=== PATIENT | female | born 2000 | race Hispanic/Latino ===

== ENCOUNTER 2018-02-20 12:59 | Emergency (ER) | payer OTHER ==
[2018-02-20 14:49] LABS: Urine Blood 3+ (NEG); Urine Glucose NEGATIVE (NEG); Urine Protein 1+ (NEG); Urine Specific Gravity 1.015 (1.005-1.030)
[2018-02-20 15:23] LABS: Urine Appearance CLEAR; Urine Bilirubin NEGATIVE (NEG); Urine Blood 3+ (NEG); Urine Color YELLOW; Urine Glucose NEGATIVE (NEG); Urine Protein TRACE (NEG); Urine Urobilinogen 0.2 mg/dL (0.2-1.0); Urine pH 6.5 (5.0-7.0)
[2018-02-20 15:25] LABS: Urine Microscopic Reflex ORDER UMIC
[2018-02-20 15:47] LABS: Urine Amorphous Sediment 2+ /HPF (NONE SEEN); Urine Bacteria 20-50 /HPF (<20); Urine Culture Reflex Order REFLEXED; Urine Mucus 1+ /HPF (NONE SEEN); Urine RBC 20-50 /HPF (NONE SEEN)
--- NOTE | 2018-02-20 15:56 | ER ---
Nurse's Notes [facility] Name: Valeriano Mondragon Age: 18 yrs Sex: Female : 2000 Arrival Date: 02/20/2018 Time: 13:04 Bed 26 Private MD: Diagnosis: UTI Presentation: 02/20 13:25 Presenting complaint: Patient states: "I woke up with a fever of 100.9. I gave on lk1 February 15 and they told me to come back if I had fever. I took some Ibuprofen for it and it's down, but I think I need to be checked.". Transition of care: patient was not received from another setting of care. Onset of symptoms was February 19, 2018 at 08:00. Care prior to arrival: None. 13:25 Method Of Arrival: Ambulatory lk1 13:25 Acuity: TIFFANY 3 lk1 Triage Assessment: 13:27 General: Appears in no apparent distress. Behavior is calm, cooperative, appropriate lk1 for age. Pain: Denies pain. : Reports burning with urination. 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 - Social history:: Smoking status: Patient/guardian denies using tobacco. Screenin:35 Abuse screen: Denies threats or abuse. Nutritional screening: No deficits noted. tl3 Tuberculosis screening: No symptoms or risk factors identified. Fall Risk None identified. Assessment: 14:18 Reassessment: pt reports that last night she had a fever of 100.9, took motrin and it tl3 helped, everything else is progressing normally since the delivery of her baby. no unusual or foul smelling discharge at this time, urine collected. General: Appears in no apparent distress. comfortable, slender, well groomed, well developed, well nourished, Behavior is calm, cooperative, appropriate for age. Pain: Denies pain. Neuro: Level of Consciousness is awake, alert, obeys commands, Oriented to person, place, time, situation, Appropriate for age. Cardiovascular: Heart tones S1 S2 present Capillary refill < 3 seconds in right in left fingers. Respiratory: Airway is patent Trachea midline Breath sounds are clear bilaterally. GI: No signs and/or symptoms were reported involving the gastrointestinal system. : No signs and/or symptoms were reported regarding the genitourinary system. EENT: No signs and/or symptoms were reported regarding the EENT system. Derm: No signs and/or symptoms reported regarding the dermatologic system. Musculoskeletal: No signs and/or symptoms reported regarding the musculoskeletal system. 15:17 Reassessment: Patient appears in no apparent distress at this time. No changes from tl3 previously documented assessment. Patient and/or family updated on plan of care and expected duration. Pain level reassessed. Patient is alert, oriented x 3, equal unlabored respirations, skin warm/dry/pink. awaiting UA results. Vital Signs: 13:27 BP 113 / 72; Pulse 69; Resp 13; Temp 97.9(TE); Pulse Ox 100% on R/A; Weight 49.9 kg lk1 (R); Height 4 ft. 11 in. (149.86 cm) (R); Pain 0/10; 15:17 BP 108 / 77; Pulse 57; Resp 18; Pulse Ox 98% on R/A; tl3 15:34 BP 115 / 77; Pulse 59; Resp 18; Pulse Ox 96% ; tl3 13:27 Body Mass Index 22.22 (49.90 kg, 149.86 cm) lk1 ED Course: 13:04 Patient arrived in ED. mr 13:26 Triage completed. lk1 13:29 Arm band placed on right wrist. lk1 13:47 Pepe Clark MD is Attending Physician. ps1 13:51 Collette Marina, MYNOR is Primary Nurse. tl3 15:16 Urinalysis Sent. tl3 15:35 No apparent distress. Resting quietly. Awaiting lab results. tl3 15:35 Patient has correct armband on for positive identification. Bed in low position. Call tl3 light in reach. Side rails up X 1. Adult w/ patient. Pulse ox on. NIBP on. 15:35 No provider procedures requiring assistance completed. Patient did not have IV access tl3 during this emergency room visit. 16:12 Urine Culture Sent. tl3 Administered Medications: No medications were administered Outcome: 15:56 Discharge ordered by . ps1 16:11 Discharged to tl3 16:11 Condition: good 16:11 Discharge instructions given to patient, family, Instructed on discharge instructions, follow up and referral plans. medication usage, Demonstrated understanding of instructions, follow-up care, medications, Prescriptions given X 1. 16:13 Patient left the ED. tl3 Signatures: Niki Fitzpatrick Leah, RN RN lk1 Pepe Clark MD MD ps1 Collette Marina RN RN tl3
--- NOTE | 2018-02-20 15:56 | EDPHYS ---
Physician Documentation [facility] Name: Valeriano Mondragon Age: 18 yrs Sex: Female : 2000 Arrival Date: 02/20/2018 Time: 13:04 Bed 26 Private MD: ED Physician Pepe Clark HPI: 02/20 15:52 This 18 yrs old Female presents to ER via Ambulatory with complaints of Fever. ps1 15:52 The patient reports fever, that was measured at 100.9 degrees Fahrenheit. Onset: The ps1 symptoms/episode began/occurred this morning. Modifying factors: there are no obvious modifying factors. Associated signs and symptoms: Pertinent negatives:. Severity of symptoms: At their worst the symptoms were very mild this morning. recent vaginal delivery. Was given precautions for fever with [facility]. No symptoms other than fever that responded to motrin. . 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 - Social history:: Smoking status: Patient/guardian denies using tobacco. ROS: 15:52 Constitutional: Negative for fever, chills, and weight loss, Eyes: Negative for injury, ps1 pain, redness, and discharge, ENT: Negative for injury, pain, and discharge, Cardiovascular: Negative for chest pain, palpitations, and edema, Respiratory: Negative for shortness of breath, cough, wheezing, and pleuritic chest pain, Abdomen/GI: Negative for abdominal pain, nausea, vomiting, diarrhea, and constipation, : Negative for injury, bleeding, discharge, and swelling, Skin: Negative for injury, rash, and discoloration, Neuro: Negative for headache, weakness, numbness, tingling, and seizure. Exam: 15:52 Constitutional: This is a well developed, well nourished patient who is awake, alert, ps1 and in no acute distress. Head/Face: Normocephalic, atraumatic. Neck: Trachea midline, no thyromegaly or masses palpated, and no cervical lymphadenopathy. Supple, full range of motion without nuchal rigidity, or vertebral point tenderness. No Meningismus. Chest/axilla: Normal chest wall appearance and motion. Nontender with no deformity. No lesions are appreciated. Cardiovascular: Regular rate and rhythm. No gallops, murmurs, or rubs. Normal PMI, no JVD. No pulse deficits. Respiratory: Lungs have equal breath sounds bilaterally, clear to auscultation and percussion. No rales, rhonchi or wheezes noted. No increased work of breathing, no retractions or nasal flaring. 15:52 Abdomen/GI: Palpation: soft, nontender, fundus normal. 15:52 Skin: Warm, dry with normal turgor. Normal color with no rashes, no lesions, and no ps1 evidence of cellulitis. Neuro: Awake and alert, GCS 15, oriented to person, place, time, and situation. Cranial nerves II-XII grossly intact. Sensory grossly intact. Vital Signs: 13:27 BP 113 / 72; Pulse 69; Resp 13; Temp 97.9(TE); Pulse Ox 100% on R/A; Weight 49.9 kg lk1 (R); Height 4 ft. 11 in. (149.86 cm) (R); Pain 0/10; 15:17 BP 108 / 77; Pulse 57; Resp 18; Pulse Ox 98% on R/A; tl3 15:34 BP 115 / 77; Pulse 59; Resp 18; Pulse Ox 96% ; tl3 13:27 Body Mass Index 22.22 (49.90 kg, 149.86 cm) lk1 MDM: 14:15 Patient medically screened. ps1 15:52 Data reviewed: vital signs, nurses notes, lab test result(s), urinalysis, bacteruria. ps1 ED course: asymptomatic. Has UTI. Will treat with Keflex. Stable for discharge. . 02/20 14:18 Order name: Urine Dipstick--Ancillary (enter results); Complete Time: 14:52 bd 02/20 14:53 Order name: Urinalysis; Complete Time: 15:52 ps1 02/20 13:56 Order name: Urine Dipstick-Ancillary (obtain specimen); Complete Time: 15:33 ps1 02/20 15:25 Order name: Urine Microscopic Only; Complete Time: 15:52 EDMS 02/20 15:49 Order name: Urine Culture EDMS Administered Medications: No medications were administered Disposition: 03/27/18 15:56 Discharged to Home. Impression: UTI. - Condition is Stable. - Discharge Instructions: Urinary Tract Infection. - Prescriptions for Keflex 500 mg Oral Capsule - take 1 capsule by ORAL route every 8 hours for 10 days; 30 capsule. - Medication Reconciliation Form, Thank You Letter, Antibiotic Education, Prescription Opioid Use form. - Follow up: Private Physician; When: As needed; Reason: Recheck today's complaints, Continuance of care, Re-evaluation by your physician. Follow up: Emergency Department; When: As needed; Reason: Fever > 102 F, Worsening of condition. - Problem is new. - Symptoms are unchanged. Signatures: Dispatcher [employer] EDCynthia Robles, RN RN lk1 Pepe Clark MD MD ps1 Collette Marina RN RN tl3
== END 2018-02-20 16:13 | disposition home or self-care (01) ==
LOC: ER 12:59
DX: N39.0 Urinary tract infection, site not specified
CPT/HCPCS: 81003; 81015; 87077; 87086; 87088; 87186; 99283

== ENCOUNTER 2018-09-08 23:53 | Emergency (ER) | payer OTHER, SELFPAY ==
--- NOTE | 2018-09-09 01:01 | ER ---
Nurse's Notes [facility] Name: Valeriano Mondragon Age: 18 yrs Sex: Female : 2000 Arrival Date: 09/08/2018 Time: 23:54 Bed 14 Private MD: Diagnosis: Urticaria Presentation: 09/09 00:15 Presenting complaint: Patient states: intermittent hives on the face, back and arms cc3 since 3 days. Transition of care: patient was not received from another setting of care. Onset: The symptoms/episode began/occurred 3 day(s) ago. Anaphylaxis evaluation, no signs or symptoms of anaphylaxis were noted. Onset of symptoms was September 06, 2018. Risk Assessment: Do you want to hurt yourself or someone else? Patient reports no desire to harm self or others. Initial Sepsis Screen: Does the patient meet any 2 criteria? No. Patient's initial sepsis screen is negative. Does the patient have a suspected source of infection? No. Patient's initial sepsis screen is negative. Care prior to arrival: None. 00:15 Method Of Arrival: Ambulatory cc3 00:15 Acuity: TIFFANY 4 cc3 Triage Assessment: 00:15 General: Appears in no apparent distress. comfortable, Behavior is calm, cooperative, cc3 appropriate for age. Pain: Denies pain. EENT: No signs and/or symptoms were reported regarding the EENT system. Neuro: Level of Consciousness is awake, alert, obeys commands, Oriented to person, place, time, situation, Appropriate for age. Cardiovascular: Denies chest pain. Respiratory: Airway is patent Respiratory effort is even, unlabored, Respiratory pattern is regular, symmetrical. GI: Abdomen is flat, round non-distended. : No signs and/or symptoms were reported regarding the genitourinary system. Derm: Reports intermittent rash on the face, back and arms since 3 days. Musculoskeletal: Circulation, motion, and sensation intact. Range of motion: intact in all extremities. 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 - Social history:: Smoking status: Patient/guardian denies using tobacco, never smoked. - Ebola Screening: : No symptoms or risks identified at this time. Screenin:15 Abuse screen: Denies threats or abuse. Denies injuries from another. Nutritional cc3 screening: No deficits noted. Tuberculosis screening: No symptoms or risk factors identified. Fall Risk Ambulatory Aid- None/Bed Rest/Nurse Assist (0 pts). Gait- Normal/Bed Rest/Wheelchair (0 pts) Mental Status- Oriented to own ability (0 pts). Assessment: 00:15 Respiratory: Airway is patent Respiratory effort is even, unlabored, Respiratory cc3 pattern is regular, symmetrical, Breath sounds are clear bilaterally. 00:57 Reassessment: Patient appears in no apparent distress at this time. Patient and/or cc3 family updated on plan of care and expected duration. Pain level reassessed. Patient is alert, oriented x 3, equal unlabored respirations, skin warm/dry/pink. Dr. Gonzalez discharged the patient home with prescription given. No IV cannula in situ. Patient left ER vitally stable and ambulatory. Vital Signs: 00:15 BP 112 / 80; Pulse 73; Resp 17 S; Pulse Ox 99% on R/A; Weight 38.1 kg; Height 4 ft. 11 cc3 in. (149.86 cm); Pain 0/10; 00:15 Body Mass Index 16.97 (38.10 kg, 149.86 cm) cc3 ED Course: 09/08 23:54 Patient arrived in ED. am2 09/09 00:14 Ja Gonzalez MD is Attending Physician. gs 00:15 Arm band placed on left wrist. cc3 00:15 Patient has correct armband on for positive identification. Bed in low position. Call cc3 light in reach. Side rails up X 1. Pulse ox on. NIBP on. 00:24 Susan Hammonds is Primary Nurse. cc3 00:57 No provider procedures requiring assistance completed. Patient did not have IV access cc3 during this emergency room visit. 01:27 Triage completed. cc3 Administered Medications: No medications were administered Outcome: 00:43 Discharge ordered by . gs 00:57 Discharged to home ambulatory. cc3 00:57 Condition: stable 00:57 Discharge instructions given to patient, Instructed on discharge instructions, follow up and referral plans. medication usage, Demonstrated understanding of instructions, follow-up care, medications, Prescriptions given X 2. 01:00 Patient left the ED. cc3 Signatures: Nelsy Shanks am2 Ja Gonzalez MD MD Susan Hammonds cc3 Corrections: (The following items were deleted from the chart) 01:36 00:15 Onset of symptoms was September 06, 2018 3 3 36 00:15 Onset of symptoms was September 09, 2018 3 3
--- NOTE | 2018-09-10 01:00 | EDPHYS ---
Physician Documentation [facility] Name: Valeriano Mondragon Age: 18 yrs Sex: Female : 2000 Arrival Date: 09/08/2018 Time: 23:54 Bed 14 Private MD: ED Physician Ja Gonzalez HPI: 09/09 01:41 This 18 yrs old Female presents to ER via Ambulatory with complaints of gs Allergic Reaction, Hives. 01:41 Onset: The symptoms/episode began/occurred yesterday. Associated signs and symptoms: gs Pertinent positives: rash, Pertinent negatives: Altered mental status chest pain, shortness of breath, Syncope vomiting. Possible causes: The patient has no known obvious cause for the symptoms. At home the patient or guardian has treated the symptoms with Benadryl. Severity of symptoms: At their worst the symptoms were moderate in the emergency department the symptoms have improved moderately. The patient has experienced similar episodes in the past, a few times. 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 - Social history:: Smoking status: Patient/guardian denies using tobacco, never smoked. - Ebola Screening: : No symptoms or risks identified at this time. ROS: 01:46 All other systems are negative. gs Exam: 01:46 Head/Face: Normocephalic, atraumatic. Eyes: Pupils equal round and reactive to light, gs extra-ocular motions intact. Lids and lashes normal. Conjunctiva and sclera are non-icteric and not injected. Cornea within normal limits. Periorbital areas with no swelling, redness, or edema. ENT: Nares patent. No nasal discharge, no septal abnormalities noted. Tympanic membranes are normal and external auditory canals are clear. Oropharynx with no redness, swelling, or masses, exudates, or evidence of obstruction, uvula midline. Mucous membranes moist. Neck: Trachea midline, no thyromegaly or masses palpated, and no cervical lymphadenopathy. Supple, full range of motion without nuchal rigidity, or vertebral point tenderness. No Meningismus. Chest/axilla: Normal chest wall appearance and motion. Nontender with no deformity. No lesions are appreciated. Cardiovascular: Regular rate and rhythm with a normal S1 and S2. No gallops, murmurs, or rubs. Normal PMI, no JVD. No pulse deficits. Respiratory: Lungs have equal breath sounds bilaterally, clear to auscultation and percussion. No rales, rhonchi or wheezes noted. No increased work of breathing, no retractions or nasal flaring. Abdomen/GI: Soft, non-tender, with normal bowel sounds. No distension or tympany. No guarding or rebound. No evidence of tenderness throughout. Back: No spinal tenderness. No costovertebral tenderness. Full range of motion. MS/ Extremity: Pulses equal, no cyanosis. Neurovascular intact. Full, normal range of motion. Neuro: Awake and alert, GCS 15, oriented to person, place, time, and situation. Cranial nerves II-XII grossly intact. Motor strength 5/5 in all extremities. Sensory grossly intact. Cerebellar exam normal. Normal gait. 01:46 Constitutional: The patient appears alert, awake. 01:46 Skin: rash a mild rash is noted, rash can be described as urticarial. Vital Signs: 00:15 BP 112 / 80; Pulse 73; Resp 17 S; Pulse Ox 99% on R/A; Weight 38.1 kg; Height 4 ft. 11 cc3 in. (149.86 cm); Pain 0/10; 00:15 Body Mass Index 16.97 (38.10 kg, 149.86 cm) cc3 MDM: 00:32 Patient medically screened. 01:46 Differential diagnosis: urticaria, Vasovagal Reactions. Data reviewed: vital signs, nurses notes. Response to treatment: There is no appreciated change of the patient's symptoms at this time, and as a result, I will discharge patient. 01:47 Counseling: I had a detailed discussion with the patient and/or guardian regarding: the historical points, exam findings, and any diagnostic results supporting the discharge/admit diagnosis, the need for outpatient follow up. Administered Medications: No medications were administered Disposition: 09/09/18 00:43 Discharged to Home. Impression: Urticaria. - Condition is Stable. - Prescriptions for Prednisone 20 mg Oral Tablet - take 1 tablet by ORAL route once daily for 5 days; 5 tablet. Zyrtec 10 mg Oral Tablet - take 1 tablet by ORAL route once daily As needed; 20 tablet. - Medication Reconciliation Form, Thank You Letter, Antibiotic Education, Prescription Opioid Use form. - Follow up: Private Physician; When: 2 - 3 days; Reason: Re-evaluation by your physician. Signatures: Ja Gonzalez MD MD gs Cordel, Charlene cc3 Corrections: (The following items were deleted from the chart) 01:00 00:43 09/09/2018 00:43 Discharged to Home. Impression: Urticaria. Condition is Stable. cc3 Forms are Medication Reconciliation Form, Thank You Letter, Antibiotic Education, Prescription Opioid Use. Follow up: Private Physician; When: 2 - 3 days; Reason: Re-evaluation by your physician. flaco
== END 2018-09-09 01:00 | disposition home or self-care (01) ==
LOC: ER 23:53
DX: L50.9 Urticaria, unspecified (principal)
CPT/HCPCS: 99283